=== PATIENT | male | born 1965 | race Caucasian/White ===

== ENCOUNTER → 2017-08-01 | Outpatient (CLI) | payer BC | LOC: COL.LAB 07:45 | DX: Z01.812 Encounter for preprocedural laboratory examination (principal) ==

== ENCOUNTER → 2018-05-02 | Emergency (ER) | payer BC ==
[~2018-05-02] VITALS: Ht 172.7 cm; Wt 136.4 kg
[~2018-05-02] MED LIST: CEPHALEXIN500 M1 PO
[2018-05-02 08:46] VITALS: BP 140/70; PULSE 98; TEMP 99.9
== END ==
LOC: COL.ER 08:42
DX: R20.8 Other disturbances of skin sensation (principal)

== ENCOUNTER 2024-06-03 18:16 | Inpatient (IN) | payer BC ==
[~2024-06-03] VITALS: Ht 170.2 cm; Wt 115.0 kg
[2024-06-03] MEDS ORDERED: Acetaminophen 500 MG TAB PO ONE (20:00)
[2024-06-03] MEDS ORDERED: NS 1,000 ML IV ONE ×2 (20:00→21:15)
[2024-06-03 20:28] LABS: HEMOGLOBIN 15.5 g/dl (13.5-18.0); MEAN CELL VOLUME 99 fl (80.0-100.0); MEAN CORPUSCULAR HEMOGLOBIN 34 pg (27-31); MEAN CORPUSCULAR HGB CONC 34 g/dl (33.0-37.0); MEAN PLATELET VOLUME 9.4 fl (7.4-10.4); PLATELET COUNT 262 K/mm3 (130-400); RED BLOOD COUNT 4.53 M/mm3 (4.20-5.60); REDCELL DISTRIBUTION WIDTH-CV 12.5 % (11.5-14.5)
[2024-06-03 20:42] LABS: BILIRUBIN,TOTAL 1.1 mg/dL (0.2-1.2); C-REACTIVE PROTEIN 11.52 mg/dL (0.00-0.50); CALCIUM 10.1 mg/dL (8.4-10.2); CREATININE, serum 1.17 mg/dL (0.72-1.25); POTASSIUM 4.2 mEq/L (3.5-4.5); TOTAL PROTEIN 7.8 g/dl (6.2-8.1)
[2024-06-03 20:54] LABS: ERYTHROCYTE SEDIMENTATION RATE 11 mm/hr (0-30)
[2024-06-03 21:09] LABS: BAND 61 % (0-10); LYMPHOCYTE 5 % (20.0-51.0); METAMYELOCYTE 1 % (0-0); NEUTROPHILS 30 % (42.0-75.2)
[2024-06-03] MEDS ORDERED: ENBREL50 MG/1 ML SQ (21:29)
[2024-06-03] MEDS ORDERED: VIAGRA50 M1 PO (21:30)
[2024-06-03] MEDS ORDERED: INDOCIN50 MG PO (21:30)
[2024-06-03] MEDS ORDERED: PROTONIX20 MG PO (21:31)
[2024-06-03] MEDS ORDERED: CELEXA40 MG PO ×2 (21:32)
[2024-06-03] MEDS ORDERED: Tetanus,Diphther Toxoid Adult 0.5 ML SYRINGE IM ONE (21:45)
[2024-06-03] MEDS ORDERED: NS 1,000 ML IV SCH (21:45)
[2024-06-03] MEDS ORDERED: HYDROmorphone 0.5 MG/0.5 ML SYRINGE IV PRN (21:45)
[2024-06-03] MEDS ORDERED: Acetaminophen 325 MG TAB PO PRN (21:45)
[2024-06-03 22:45] LABS: URINE APPEARANCE CLEAR (CLEAR/HAZY); URINE BLOOD NEGATIVE (NEGATIVE); URINE COLOR YELLOW (YELLOW); URINE GLUCOSE NEGATIVE (NEGATIVE); URINE KETONE NEGATIVE (NEGATIVE); URINE NITRATE NEGATIVE (NEGATIVE); URINE PROTEIN(semi-quant) TRACE (NEGATIVE); URINE UROBILINOGEN 0.2 E.U/dL (0.2-1.0)
[2024-06-03 23:00] LABS: COLLECTION METHOD CLEAN CATCH
[2024-06-03] MEDS ORDERED: CONTRAVE1 TER PO (23:11)
[2024-06-03] MEDS ORDERED: Enoxaparin 120 MG/0.8 ML SYRINGE SQ SCH (23:25)
[2024-06-04] VITALS: BP 143/75; PULSE 75; TEMP 98.2
[2024-06-04 04:16] VITALS: BP 141/73; PULSE 89; TEMP 100.2
--- NOTE | 2024-06-04 06:45 | NUR ---
appears to be dozing, bedside shift report received from MARGE Henderson
[2024-06-04 07:08] VITALS: BP 147/74; PULSE 80; TEMP 98.9
[2024-06-04 08:46] VITALS: BP_SYST 147
[2024-06-04] MEDS ORDERED: Citalopram 20 MG TAB PO SCH (09:00)
--- NOTE | 2024-06-04 09:00 | NUR ---
sitting up in bed eating breakfast, denies needs at this time
[2024-06-04] MEDS ORDERED: Vancomycin 1.75 GM,Special Dose/Pharmacy Prepared 1.75 GM in NS 500 ML IV SCH (10:00)
--- NOTE | 2024-06-04 10:00 | NUR ---
appears to be dozing, full assessment completed, see interventions for further info, right arm remains bright red and swollen, was outlined earlier and this has not changed,
[2024-06-04] MEDS ORDERED: TYLENOL 325MG325 MG PO (10:03)
--- NOTE | 2024-06-04 10:45 | NUR ---
called and patient states he is having a panic attack and just watns to leave, Dr Quintanilla in and offered to give him something for the anxiety and he declines stating he just wants to get out of here, IV stopped and discontinued, AMA form signed
--- NOTE | 2024-06-04 10:50 | NUR ---
daughter here and patient leaving ambulatory
--- NOTE | 2024-06-04 13:28 | NUR ---
Line Erector Apprentice met with patient to discuss discharge planning. Patient lives in [place] with his mother, Jessica and sees Dr. Mcduffie for primary care. Patient gets medications from [facility] and does not use any DME. Patient is independent with ADLS and is employed at [employer]. Patient does not have DPOA-HC and was not interested in completing one at this time. Patient is not and has two daughters, Concepcion and Shonna. During rounds, patient verbalized he was having a panic attack and chose to leave [place]. Discharge Plan: [place]
== END 2024-06-04 10:45 | disposition left against medical advice (07) | DRG 872 ==
LOC: COL.ER 18:16 → MEDICAL 22:25
PROVIDERS: Emergency Medicine; ADMIT Internal Medicine
DX: A41.9 Sepsis, unspecified organism (principal); D84.9 Immunodeficiency, unspecified; L03.113 Cellulitis of right upper limb; L40.50 Arthropathic psoriasis, unspecified; I10 Essential (primary) hypertension; F41.9 Anxiety disorder, unspecified; Z96.643 Presence of artificial hip joint, bilateral; Z87.891 Personal history of nicotine dependence; Z79.620 Long term (current) use of immunosuppressive biologic; E66.9 Obesity, unspecified; Z68.39 Body mass index [BMI] 39.0-39.9, adult
CPT/HCPCS: J0737; J0780; J1171; J1650; J2543; J2765; J3370; J7030; J7050